=== PATIENT | female | born 1940 | race Caucasian/White ===

== ENCOUNTER 2019-02-17 08:42 | Day surgery (SDC) | payer MEDICARE, OTHER ==
[~2019-02-17] VITALS: Ht 157.5 cm; Wt 75.7 kg
[~2019-02-17 08:42] MED LIST: ASPIR 8181 MG PO; Acetaminophen650 M1 PO; Amlodipine-Ben1 EAC1 PO; CALCIUM + VIT1 EACH PO; Coreg12.5 MG PO; FURO20 PO; MAGNESIUM OXID500 MG PO; MIRALAX17 GM PO; OMEPRAZOLE20 MG PO; OXYB5 PO; Prinivil10 MG PO; TEMA15 PO; Zyloprim100 MG PO
== END 2019-02-17 10:29 | disposition home or self-care (01) ==
LOC: ORSCSDS 08:42
PROVIDERS: Internal Medicine Gastroenterology
PROC: 0DB68ZX Excision of Stomach, Via Natural or Artificial Opening Endoscopic, Diagnostic (ICD-10-PCS; principal; 2019-02-17 10:00)
PROC: 0DB58ZX Excision of Esophagus, Via Natural or Artificial Opening Endoscopic, Diagnostic (ICD-10-PCS; principal; 2019-02-17 10:00)
PROC: 0D758ZZ Dilation of Esophagus, Via Natural or Artificial Opening Endoscopic (ICD-10-PCS; principal; 2019-02-17 10:00)
DX: K22.70 Barrett's esophagus without dysplasia (principal); D64.9 Anemia, unspecified; I10 Essential (primary) hypertension; K22.8 Other specified diseases of esophagus; K44.9 Diaphragmatic hernia without obstruction or gangrene; E66.9 Obesity, unspecified; Z68.30 Body mass index [BMI] 30.0-30.9, adult; Z79.82 Long term (current) use of aspirin; Z79.899 Other long term (current) drug therapy
CPT/HCPCS: 88305; 88342; J0330; J0461; J2405; J2704; J7120